=== PATIENT | female | born 1975 | race Caucasian/White ===

== ENCOUNTER 2025-01-17 13:38 | Emergency (ER) | payer OTHER ==
[~2025-01-17] VITALS: Ht 157.5 cm; Wt 66.0 kg
[2025-01-17] MEDS ORDERED: PYRI60TA2 PO (13:52)
[2025-01-17] MEDS ORDERED: RELP40TA PO (13:54)
[2025-01-17] MEDS: ACETAMINOPHEN 500 MG TAB PO ONE (14:38)
[2025-01-17 15:32] VITALS: BP 123/84; TEMP 96; O2SAT 99
== END 2025-01-17 16:16 | disposition home or self-care (01) ==
LOC: EDSEX 13:38 → M ED 13:38
DX: M25.551 Pain in right hip (principal); Z88.5 Allergy status to narcotic agent; Z91.040 Latex allergy status; Z79.899 Other long term (current) drug therapy